=== PATIENT | male | born 1940 | race Caucasian/White ===

== ENCOUNTER → 2018-04-04 | Outpatient (CLI) | payer OTHER ==
[~2018-04-04] MED LIST: FLOMAX0.4 MG PO
== END ==
LOC: M.CT 11:49
DX: N40.0 Benign prostatic hyperplasia without lower urinary tract symptoms (principal); Z88.8 Allergy status to other drugs, medicaments and biological substances; Z88.0 Allergy status to penicillin

== ENCOUNTER → 2020-04-22 | Outpatient (CLI) | payer OTHER | LOC: M.ULTRA 14:24 | DX: I65.23 Occlusion and stenosis of bilateral carotid arteries (principal) ==